=== PATIENT | male | born 1980 | race Caucasian/White ===

== ENCOUNTER 2016-09-08 17:23 | Emergency (ER) | payer OTHER ==
[~2016-09-08] VITALS: Wt 72.5 kg
[2016-09-08] MEDS ORDERED: KETOROLAC 30 MG INJ IM STA (19:09)
[2016-09-08] MEDS ORDERED: NAPR-260 PO (19:24)
--- NOTE | 2016-09-08 19:24 | ERD ---
ER Documentation Chief Complaint Date/Time DATE: 09/08/16 TIME: 19:21 Chief Complaint BACK PAIN X3 DAYS ABLE TO AMBULATE STEADILY TOOK ALEVE 1630 HPI Patient is a 36-year-old male with no past medical history who presents to the ED with low back pain 2 days after lifting a heavy box at work. 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 Denies radiation of pain. Denies bowel or bladder incontinence. Denies chest pain, cough, shortness of breath. Denies difficulty walking or weakness. States that he is able to ambulate and has normal range of motion but feels tenderness in his back. Has taken Motrin for his symptoms which has helped minimally. No other complaints. ROS All systems reviewed and are negative except as per history of present illness. Medications Home Meds Active Scripts Cyclobenzaprine Hcl* (Cyclobenzaprine Hcl*) 10 Mg Tablet, 10 MG PO TID, #15 TAB Prov:CONNIE BROWN PA-C 09/08/16 Naproxen* (Naprosyn*) 500 Mg Tablet, 500 MG PO BID Y for PAIN AND/OR INFLAMMATION, #30 TAB Prov:CONNIE BROWN PA-C 09/08/16 Allergies Allergies: Coded Allergies: No Known Allergy (Unverified , 09/08/16) PMhx/Soc Medical and Surgical Hx: pt denies Medical Hx, pt denies Surgical Hx History of Surgery: No Anesthesia Reaction: No Hx Neurological Disorder: No Hx Respiratory Disorders: No Hx Cardiac Disorders: No Hx Psychiatric Problems: No Hx Miscellaneous Medical Probl: No Hx Alcohol Use: Yes (once/ week) Hx Substance Use: No Hx Tobacco Use: Yes (10 cigs/ day) Smoking Status: Current every day smoker FmHx Family History: No coronary disease, No diabetes, No other Physical Exam Vitals Vital Signs Date Time Temp Pulse Resp B/P Pulse Ox O2 Delivery O2 Flow Rate FiO2 09/08/16 17:34 98.2 73 18 134/79 98 Physical Exam GENERAL: Well-developed, well-nourished male. Appears in no acute distress. HEAD: Normocephalic, atraumatic. EYES: Pupils are equally reactive bilaterally. EOMs grossly intact. No conjunctival erythema. ENT: Moist mucous membranes. No uvula deviation. No kissing tonsils. No exudates. NECK: Supple. No lymphadenopathy or thyromegaly. No meningismus. negative kernig. negative brudinski. LUNG: Clear to auscultation bilaterally. No rhonchi, wheezing, rales or coarse breath sounds. HEART: Regular rate and rhythm. No murmurs, rubs or gallops. BACK: No midline tenderness. No spinal or paraspinal tenderness. No step-offs or deformities. No open wounds or lacerations. No lesions. No erythema or warmth. Extremities: Equal pulses bilaterally. No peripheral clubbing, cyanosis or edema. No unilateral leg swelling. NEUROLOGIC: Alert and oriented. Moving all four extremities. 5/5 strength in all extremities. Normal speech. Steady gait. SKIN: Normal color. Warm and dry. No rashes or lesions. Capillary refill < 2 seconds Results 24 hrs Current Medications Medications (Trade) Dose Ordered Sig/Dexter Route PRN Reason Start Time Stop Time Status Last Admin Dose Admin Ketorolac Tromethamine (Toradol) 30 mg ONCE STAT IM 09/08/16 19:09 09/08/16 19:10 DC 09/08/16 20:09 Procedures/MDM ER COURSE: I kept the patient and/or family informed of laboratory and diagnostic imaging results throughout the emergency room course. IMAGING STUDIES [place] [id number] Radiology Main Line: [phone] DIAGNOSTIC IMAGING REPORT Patient: TOSHIA QUINONEZ : 1980 Age: 36 Sex: M MR #: [id number] DOS: 09/08/16 1909 Ordering MD: CONNIE BROWN PA-C Location: [facility] Room/Bed: PROCEDURE: XR Lumbar Spine. CLINICAL INDICATION: Low back pain. TECHNIQUE: AP, cone-down lateral, and lateral views of the lumbar spine were obtained. COMPARISON: None. FINDINGS: Mineralization is within normal limits. Vertebral bodies are normal in height. No fracture is identified. Levoscoliosis of approximately 10 degrees with the apex at the L1 level is noted. There is subtle right paracentral osteophyte formation arising from the inferior T11 and T12 end plates. A probable small superior L2 endplate Schmorl's node is suggested. No vertebral subluxation is seen. The intervertebral discs are normal in height. Paraspinal contours are unremarkable. RPTAT:HJJR IMPRESSION: 1. Mild levoscoliosis. 2. Right lateral spondylosis from the inferior T11-T12 vertebral bodies. 3. Small superior L2 endplate Schmorl's node. Physician Kaushik Date Time Electronically viewed and signed by Mejia Thornton Physician on 09/08/2016 20:32 JR/ CC: CONNIE BROWN PA-C MEDICATIONS Toradol 30 mg IM. Tolerated well with no adverse reaction to MEDICAL DECISION MAKING: This is a 36-year-old male who presents with back pain 2 days. Vital signs were reviewed. Patient is afebrile. Patient is not hypoxic. Patient is not toxic or ill-appearing. Patient likely has muscle strain versus sprain. X- rays of by radiologist is unremarkable for fracture or dislocation. I reexamined patient after administration of medication and he stated improvement in symptoms. Low suspicion for cauda equine syndrome, spinal epidural hematoma , spinal epidural abscess, osteomyelitis, fracture, aortic dissection, AAA, pyelonephritis, nephrolithiasis, septic stone, obstructed stone. DISCHARGE: At this time, patient is stable for discharge and outpatient management with no new complaints during the ER course. Patient was sent home with Andresyn for pain, Flexeril and a note for work. A copy of imaging studies was also given to patient.. Patient will be discharged home with instructions to recheck for new or worsening symptoms such as fever, nausea, weakness, LOC and to follow up with primary care in the next 1-2 days. Patient was advised to return to the ER for any new or worsening symptoms. Plan was discussed and patient and/or family understands and agrees. Home instructions were given. Departure Diagnosis: Primary Impression: Back pain Back pain location: low back pain Chronicity: unspecified Back pain laterality: unspecified Sciatica presence: unspecified whether sciatica present Qualified Code: M54.5 - Low back pain, unspecified back pain laterality, unspecified chronicity, with sciatica presence unspecified Condition: Stable CONNIE BROWN PA-C Sep 08, 2016 19:24
[2016-09-08] MEDS ORDERED: CYCL-319 PO (19:25)
--- NOTE | 2016-09-08 20:32 | RADRPT ---
PROCEDURE: XR Lumbar Spine. CLINICAL INDICATION: Low back pain. TECHNIQUE: AP, cone-down lateral, and lateral views of the lumbar spine were obtained. COMPARISON: None. FINDINGS: Mineralization is within normal limits. Vertebral bodies are normal in height. No fracture is iden tified. Levoscoliosis of approximately 10 degrees with the apex at the L1 level is noted. There is subtle right paracentral osteophyte formation arising from the inferior T11 and T12 end plates. A probable small superior L2 endplate Schmorl's node is suggested. No vertebral subluxation is seen. The intervertebral discs are normal in height. Paraspinal contours are unremarkable. RPTAT:HJJR IMPRESSION: 1. Mild levoscoliosis. 2. Right lateral spondylosis from the inferior T11-T12 vertebral bodies. 3. Small superior L2 endplate Schmorl's node. Physician Kaushik Date Time Electronically viewed and signed by Physician Kaushik on 09/08/2016 20:32 /
== END 2016-09-08 20:44 | disposition home or self-care (01) ==
LOC: FTE 17:23
DX: M54.5 Low back pain (principal); F17.210 Nicotine dependence, cigarettes, uncomplicated
CPT/HCPCS: 72100; 96372; J1885; Z7502